=== PATIENT | male | born 1980 ===

== ENCOUNTER 2018-04-06 08:58 | Emergency (ER) | payer OTHER ==
--- NOTE | 2018-04-06 09:41 | C.PDOC ---
History Of Present Illness 37 y/o male presents to the ER complaining of chest pain which began in the morning today. Patient states that he woke up when he heard his cat knock over an object. Patient reports that he ran after the cat and he became anxious. He notes that he has history of anxiety and PTSD, he has good compliance with his medications. He notes that he goes to [place] for healthcare. Denies having SOB, nausea, vomiting, leg swelling, and family history of coronary events. Time Seen by Provider: 04/06/18 09:02 Chief Complaint (Nursing): Chest Pain History Per: Patient History/Exam Limitations: no limitations Onset/Duration Of Symptoms: Hrs Current Symptoms Are (Timing): Still Present Severity: Moderate Past Medical History Reviewed: Historical Data, Nursing Documentation, Vital Signs Vital Signs: Last Vital Signs Temp 98.4 F 04/06/18 09:13 Pulse 67 04/06/18 09:13 Resp 20 04/06/18 09:13 BP 115/83 04/06/18 09:13 Pulse Ox 95 04/06/18 09:13 - Medical History PMH: Anxiety, Post Traumatic Stress Disorder Other Surgeries: Hx of surgeries Family History: States: No Known Family Hx - Social History Hx Alcohol Use: No Hx Substance Use: No - Immunization History Hx Tetanus Toxoid Vaccination: No Hx Influenza Vaccination: No Hx Pneumococcal Vaccination: No Review Of Systems Except As Marked, All Systems Reviewed And Found Negative. Constitutional: Negative for: Fever, Chills Cardiovascular: Positive for: Chest Pain Respiratory: Negative for: Shortness of Breath Gastrointestinal: Negative for: Nausea, Vomiting Physical Exam - Physical Exam Appears: Non-toxic, Other (mildly anxious) Skin: Normal Color, Warm Head: Atraumatic, Normacephalic Eye(s): bilateral: Normal Inspection Nose: Normal Oral Mucosa: Moist Neck: Supple Chest: Symmetrical Cardiovascular: Rhythm Regular Respiratory: Normal Breath Sounds, No Rales, No Rhonchi, No Wheezing Neurological/Psych: Oriented x3, Normal Speech ED Course And Treatment ECG: Interpreted By Me, Viewed By Me ECG Rhythm: Sinus Rhythm ECG Interpretation: Normal Rate From EC O2 Sat by Pulse Oximetry: 95 (RA) Pulse Ox Interpretation: Normal - Radiology CXR: Interpreted by Me, Viewed By Me CXR Interpretation: Yes: No Acute Disease Progress Note: Patient caln and cooperative. Talking on cell phone in no distress Reassessment Condition: Improved Medical Decision Making Medical Decision Making: Plan: -CXR Disposition Counseled Patient/Family Regarding: Diagnosis, Need For Followup - Disposition Referrals: [facility] [Outside] [facility] [Outside] Disposition: HOME/ ROUTINE Disposition Time: 10:10 Condition: STABLE Additional Instructions: Follow up with your PMD for further evaluation Return to ED if any increase symptoms Instructions: Social Anxiety Disorder, Chest Pain That Is Not Caused by the Heart (DC) Forms: [employer] (Indonesian) - POA Present On Arrival: None - Clinical Impression Clinical Impression: Chest discomfort, Anxiety - PA / PARLIAMENTARY LIBRARIAN / Resident Statement MD/DO has reviewed & agrees with the documentation as recorded. - Scribe Statement The provider has reviewed the documentation as recorded by the Scribe Yue Lundberg Provider Attestation All medical record entries made by the Scribe were at my direction and personally dictated by me. I have reviewed the chart and agree that the record accurately reflects my personal performance of the history, physical exam, medical decision making, and the department course for this patient. I have also personally directed, reviewed, and agree with the discharge instructions and disposition.
[2018-04-06 10:05] VITALS: BP 134/72; PULSE 60; RESP 18; TEMP 97.9
[2018-04-06 10:08] VITALS: O2SAT 95
--- NOTE | 2018-04-06 10:22 | RAD ---
HISTORY: SOB COMPARISON: No prior. TECHNIQUE: Chest PA and lateral FINDINGS: LUNGS: No focal consolidation. Please note that chest x-ray has limited sensitivity for the detection of pulmonary masses. PLEURA: No significant pleural effusion identified. No definite pneumothorax . CARDIOVASCULAR: The cardiomediastinal silhouette appears within normal limits of size. No atherosclerotic calcification present. OSSEOUS STRUCTURES: No acute osseous abnormality identified. VISUALIZED UPPER ABDOMEN: Unremarkable. OTHER FINDINGS: None. IMPRESSION: No focal consolidation identified.
--- NOTE | 2018-04-07 10:56 | CARD ---
APPROVED REPORT Date of service: 04/06/2018 EKG Measurement Heart [id number] <Conclusion> Normal sinus rhythm Normal ECG
== END 2018-04-06 10:24 | disposition home or self-care (01) ==
LOC: C.ER 08:58
DX: F41.9 Anxiety disorder, unspecified (principal); R07.89 Other chest pain